=== PATIENT | female | born 1990 | race American Indian/Alaskan Native ===

== ENCOUNTER 2017-04-14 09:24 | Emergency (ER) | payer MEDICAID ==
--- NOTE | 2017-04-14 11:52 | Emergency Department Report ---
Upper Respiratory HPI - HPI Chief Complaint: Adult Asthma Stated Complaint: FLU LIKE SYMPTOMS Time Seen by Provider: 04/14/17 11:23 Duration: 5 Days URI Symptoms: Rhinorrhea: Yes, Sore Throat: Yes, Cough: Yes, Shortness of Breath : No, Sick Contacts: No, Unable to Take Fluids: No, Urine Output Abnormal: No, Listless Behavior: No - Home Meds and Allergies Home Medications: Previous Rx's Medication Instructions Recorded Last Taken Type ALBUTEROL Inhaler [ProAir HFA 2 puff IH QID PRN #1 inhalation 04/14/17 Unknown Rx Inhaler] Benzonatate [Tessalon Perles] 100 mg PO Q8HR PRN #30 capsule 04/14/17 Unknown Rx Ibuprofen 800 mg PO TID PRN #30 tablet 04/14/17 Unknown Rx predniSONE [Deltasone] 40 mg PO QDAY #10 tab 04/14/17 Unknown Rx Allergies/Adverse Reactions: Allergies Allergy/AdvReac Type Severity Reaction Status Date / Time No Known Allergies Allergy Unverified 04/14/17 09:48 ED Review of Systems ROS: Stated complaint: FLU LIKE SYMPTOMS Other details as noted in HPI Constitutional: denies: chills, fever Eyes: denies: eye pain, eye discharge, vision change ENT: throat pain, congestion Respiratory: cough, wheezing. denies: shortness of breath Cardiovascular: denies: chest pain, palpitations Endocrine: no symptoms reported Gastrointestinal: denies: abdominal pain, nausea, diarrhea Genitourinary: denies: urgency, dysuria, discharge Musculoskeletal: denies: back pain, joint swelling, arthralgia Skin: denies: rash, lesions Neurological: denies: headache, weakness, paresthesias Psychiatric: denies: anxiety, depression Hematological/Lymphatic: denies: easy bleeding, easy bruising ED Past Medical Hx - Past Medical History Previous Medical History?: Yes Hx Hypertension: Yes Hx Asthma: Yes - Surgical History Past Surgical History?: Yes Additional Surgical History: C section 2010 - Social History Smoking Status: Never Smoker Substance Use Type: None - Medications Home Medications: Home Medications Medication Instructions Recorded Confirmed Last Taken Type ALBUTEROL Inhaler [ProAir HFA 2 puff IH QID PRN #1 inhalation 04/14/17 Unknown Rx Inhaler] Benzonatate [Tessalon Perles] 100 mg PO Q8HR PRN #30 capsule 04/14/17 Unknown Rx Ibuprofen 800 mg PO TID PRN #30 tablet 04/14/17 Unknown Rx predniSONE [Deltasone] 40 mg PO QDAY #10 tab 04/14/17 Unknown Rx ED Bronchiolitis Physical Exam - Exam General: Vital signs noted. No distress. Alert and acting appropriately. HEENT: Yes Pharyngeal Erythema, Yes Rhinorrhea, No Conjuctival Injection, No Dry Mucous Membranes Ear: Neither TM Bulge, Neither TM Erythema, Neither EAC Discharge Neck: No Adenopathy, No Rigidity Lungs: Yes Good Air Exchange, Yes Wheezes, Yes Cough, No Clear Lung Sounds ( mild wheezing ), No Stridor, No Nasal Flaring, No Retractions, No Use of Accessory Muscles Heart: Yes Regular, No Murmur Abdomen: Yes Normal Bowel Sounds, No Tenderness, No Peritoneal Signs Skin: No Rash, No Eczema Neurologic: Alert and oriented, no deficits. Musculoskeletal: Unremarkable. ED Physical Exam - General Limitations: No Limitations General appearance: alert, in no apparent distress - Head Head exam: Present: atraumatic, normocephalic - Eye Eye exam: Present: normal appearance, PERRL, EOMI Pupils: Present: normal accommodation - ENT ENT exam: Present: normal exam, normal orophraynx, mucous membranes moist, TM's normal bilaterally, normal external ear exam - Neck Neck exam: Present: normal inspection, full ROM. Absent: tenderness, lymphadenopathy, thyromegaly - Respiratory Respiratory exam: Present: wheezes (mild exp wheezes bilat ). Absent: respiratory distress, rhonchi, stridor, chest wall tenderness, decreased breath sounds, prolonged expiratory - Cardiovascular Cardiovascular Exam: Present: regular rate, normal rhythm, normal heart sounds. Absent: systolic murmur, diastolic murmur, rubs, gallop - GI/Abdominal GI/Abdominal exam: Present: soft, normal bowel sounds. Absent: distended, tenderness, guarding, rebound - Rectal Rectal exam: Present: deferred - Extremities Exam Extremities exam: Present: normal inspection - Back Exam Back exam: Present: normal inspection - Neurological Exam Neurological exam: Present: alert, oriented X3, CN II-XII intact, normal gait, reflexes normal. Absent: motor sensory deficit - Psychiatric Psychiatric exam: Present: normal affect, normal mood - Skin Skin exam: Present: warm, dry, intact, normal color. Absent: rash ED Course Vital Signs 04/14/17 09:48 Temperature 98.7 F Pulse Rate 78 Respiratory 18 Rate Blood Pressure 129/87 O2 Sat by Pulse 98 Oximetry ED Medical Decision Making - Medical Decision Making pt is a 27 y/o aaf with hx asthma out of medications x 1 month pt presents for cough mild noc wheezing no head congestion, symptoms worse at night, prevent complete nights sleep, exam at this time pt appears well nontoxic mild exp wheezing, ent: no tm erythema or pain , nose: mild boggy no polyps no obstruction pharynx: mild erythema no exudate no swelling no stridor , no use of accessory muscle or work of breathing, plan: refill albuterol steriod burst, tessalon and zpack pt will follow up with pcp em 2-3 days pt verbalized agreement and understanding of same. Critical care attestation.: If time is entered above; I have spent that time in minutes in the direct care of this critically ill patient, excluding procedure time. ED Disposition Clinical Impression: Bronchitis Disposition: DC- TO HOME OR SELFCARE Is pt being admited?: No Does the pt Need Aspirin: No Condition: Good Instructions: Chronic Bronchitis (ED) Prescriptions: ALBUTEROL Inhaler [ProAir HFA Inhaler] 2 puff IH QID PRN #1 inhalation PRN Reason: Shortness Of Breath Benzonatate [Tessalon Perles] 100 mg PO Q8HR PRN #30 capsule PRN Reason: Cough Ibuprofen 800 mg PO TID PRN #30 tablet PRN Reason: pain / fever predniSONE [Deltasone] 40 mg PO QDAY #10 tab Referrals: PRATEEK GONZALEZ MD [Staff Physician] - 3-5 Days Forms: Work/School Release Form(ED) Time of Disposition: 11:55
[2017-04-14 12:14] VITALS: BP 118/89
== END 2017-04-14 12:14 | disposition home or self-care (01) ==
LOC: ED 09:24
DX: J40 Bronchitis, not specified as acute or chronic (principal); I10 Essential (primary) hypertension; J45.909 Unspecified asthma, uncomplicated
CPT/HCPCS: 99282